=== PATIENT | male | born 1975 | race Caucasian/White ===

== ENCOUNTER 2016-06-21 11:13 | Emergency (ER) | payer SELFPAY ==
[2016-06-21 11:26] VITALS: BP 127/74
[2016-06-21] MEDS ORDERED: BSS OPTH.SOL* BTL ONE (11:30)
[2016-06-21] MEDS ORDERED: Tetracaine 0.5% OPTH.SOL 15ML* BTL ONE (11:30)
[2016-06-21] MEDS ORDERED: Fluorescein Sodium TOPICAL* 1 MG TEST ONE (11:30)
[2016-06-21] MEDS ORDERED: HYDROcodone/ACETAMIN 5-325 MG* 1 TAB PO ONE (11:55)
[2016-06-21] MEDS ORDERED: Tetan/Diph/Pertus SYR(Tdap)* 0.5 ML SYR(BOOSTRIX) use SYR IM ONE (11:55)
--- NOTE | 2016-06-21 12:03 | UC ---
Eye Complaint HPI - HPI Summary HPI Summary: poked himself in the right eye with a screw tow truck driver yesterday, continued pain and watering from right eye - History of Current Complaint Hx Obtained From: Patient Onset/Duration: Sudden Onset, Lasting Days - 1, Still Present Timing: Constant Severity Initially: Moderate Severity Currently: Moderate Pain Intensity: 8 Pain Scale Used: 0-10 Numeric Location of Injury: Conjunctiva Character: Dull Aggravating Factor(s): Light Alleviating Factor(s): Nothing Associated Signs And Symptoms: Positive: Drainage (Clear) Related History: Similar Episode - Risk Factors Penetrating Injury Risk Factor: Negative Globe Rupture Risk Factors: Negative Acute Glaucoma Risk Factors: Negative Optic Artery Occlusion Risk Factors: Negative <Tiffanie Page - Last Filed: 06/21/16 12:32> <Juani Martin - Last Filed: 06/21/16 13:48> - History of Current Complaint Chief Complaint: UCEye Stated Complaint: EYE INJURY Time Seen by Provider: 06/21/16 11:46 - Allergies/Home Medications Allergies/Adverse Reactions: Allergies Allergy/AdvReac Type Severity Reaction Status Date / Time No Known Allergies Allergy Verified 06/21/16 11:20 Home Medications: Home Medications Ibuprofen TAB* [Advil TAB*] 800 mg PO PRN 06/21/16 [History] PMH/Surg Hx/FS Hx/Imm Hx Previously Healthy: Yes - Surgical History Surgical History: Yes - Family History Family History: denies cardio vascular issues in family lineage - Social History Occupation: Employed Full-time - master machinist Lives: With Family Alcohol Use: None Substance Use Type: None Smoking Status (MU): Former Smoker Type: Cigarettes Length of Time of Smoking/Using Tobacco: 15 years When Did the Patient Quit Smoking/Using Tobacco: 2008 - Immunization History Most Recent Influenza Vaccination: doesn't get <Tiffanie Page - Last Filed: 06/21/16 12:32> Review of Systems Constitutional: Negative Skin: Negative Eyes: Drainage - clear, Eye Redness - right ENT: Negative Respiratory: Negative Cardiovascular: Negative Gastrointestinal: Negative Genitourinary: Negative Motor: Negative Neurovascular: Negative Musculoskeletal: Negative Neurological: Negative Psychological: Negative All Other Systems Reviewed And Are Negative: Yes <Tiffanie Page - Last Filed: 06/21/16 12:32> Physical Exam Triage Information Reviewed: Yes Appearance: Well-Appearing, Well-Nourished, Pain Distress - mild Vital Signs: Initial Vital Signs Temp 97.6 F 06/21/16 11:20 Pulse 68 06/21/16 11:20 Resp 17 06/21/16 11:20 BP 127/74 06/21/16 11:20 Pulse Ox 98 06/21/16 11:20 Vital Signs Reviewed: Yes Eye Exam: Normal Eyes: Positive: Conjunctiva Clear - left, Conjunctiva Inflamed - right, Discharge - clear right eye ENT Exam: Normal ENT: Positive: Normal ENT inspection, Hearing grossly normal. Negative: Nasal congestion, Nasal drainage, Trismus, Muffled/hoarse voice Dental Exam: Normal Neck exam: Normal Neck: Positive: Supple, Nontender, No Lymphadenopathy Respiratory Exam: Normal Respiratory: Positive: No respiratory distress, No accessory muscle use Cardiovascular Exam: Normal Cardiovascular: Positive: RRR, Pulses Normal, Brisk Capillary Refill Musculoskeletal Exam: Normal Musculoskeletal: Positive: Strength Intact, ROM Intact, No Edema Neurological Exam: Normal Neurological: Positive: Alert, Muscle Tone Normal Psychological Exam: Normal Psychological: Positive: Normal Response To Family Skin Exam: Normal <Tiffanie Page - Last Filed: 06/21/16 12:32> Vital Signs: Initial Vital Signs Temp 97.6 F 06/21/16 11:20 Pulse 68 06/21/16 11:20 Resp 17 06/21/16 11:20 BP 127/74 06/21/16 11:20 Pulse Ox 98 06/21/16 11:20 <Juani Martin - Last Filed: 06/21/16 13:48> Re-Evaluation - Re-Evaluation First Eval Change: Improved - tetracaine drops with complete pain releft eye exam done, 3x1 mm abrasion right eye--begining at 1:00 downward <Tiffanie Page - Last Filed: 06/21/16 12:32> Eye Complaint Course/Dx - Course Course Of Treatment: hydrocodone for more sever pain, polytrim drops, update tetnus, follow with opthamology - Differential Dx/Diagnosis Differential Diagnosis/HQI/PQRI: Conjunctivitis, Corneal Abrasion, Penetrating Injury Provider Diagnoses: Corneal abrasion right eye <Tiffanie Page - Last Filed: 06/21/16 12:32> Discharge <Tiffanie Page - Last Filed: 06/21/16 12:32> <Juani Martin - Last Filed: 06/21/16 13:48> - Discharge Plan Condition: Stable Disposition: HOME Prescriptions: HYDROcodone/ACETAMIN 5-325 MG* [[place] 5-325 TAB*] 1 tab PO Q6H PRN #12 tab MDD 4 PRN Reason: pain Polymyx/Trimethoprim OPTH* [Polytrim OPHTH*] 1 drop RIGHT EYE Q4H #1 btl Patient Education Materials: Corneal Abrasion (ED), How to Use Eye Drops (ED) Forms: *Work Release Referrals: Alice Arreola [Primary Care Provider] - Familia Lemon MD [Medical Doctor] - 2 Days () Attestation Statement User Type: Provider - I was available for consult. This patient was seen by the ANASTASIYA. The patient was not presented to, seen by, or examined by me. <Juani Martin - Last Filed: 06/21/16 13:48>
== END 2016-06-21 12:11 | disposition home or self-care (01) ==
LOC: UCEAST 11:13
DX: S05.01XA Injury of conjunctiva and corneal abrasion without foreign body, right eye, initial encounter (principal); W22.8XXA Striking against or struck by other objects, initial encounter; Y93.9 Activity, unspecified; Y92.9 Unspecified place or not applicable; Z23 Encounter for immunization; Z87.891 Personal history of nicotine dependence
CPT/HCPCS: 90471; 90715; 99212; A9270-GY; G0463